=== PATIENT | male | born 1955 | race Caucasian/White ===

== ENCOUNTER 2020-05-05 21:55 | Emergency (ER) | payer OTHER ==
[~2020-05-05] VITALS: Ht 182.9 cm; Wt 95.3 kg
[2020-05-05] MEDS ORDERED: LISINOPRIL10 MG PO (22:04)
[2020-05-05] MEDS ORDERED: SIMVASTATIN40 MG PO (22:04)
[2020-05-05] MEDS ORDERED: SILDENAFIL20 MG PO (22:05)
[2020-05-06] VITALS: BP 164/107
== END 2020-05-06 00:18 | disposition home or self-care (01) ==
LOC: ER 21:55
DX: S61.011A Laceration without foreign body of right thumb without damage to nail, initial encounter (principal); I10 Essential (primary) hypertension; Z79.899 Other long term (current) drug therapy; W26.8XXA Contact with other sharp object(s), not elsewhere classified, initial encounter; Y93.89 Activity, other specified; Y92.89 Other specified places as the place of occurrence of the external cause; Y99.8 Other external cause status